=== PATIENT | male | born 1990 | race African-American/Black ===

== ENCOUNTER 2016-11-25 13:25 | Observation (INO) | payer MEDICARE, MEDICAID ==
[~2016-11-25] VITALS: Ht 160 cm; Wt 43.5 kg
== END 2016-11-25 17:09 | disposition home or self-care (01) | DRG 101 ==
LOC: ER 13:25 → OVERFLOW 14:33 → ER 17:09
PROVIDERS: ADMIT Family Medicine; ATTEND Family Medicine
DX: G40.909 Epilepsy, unspecified, not intractable, without status epilepticus (principal); S00.531A Contusion of lip, initial encounter; W01.198A Fall on same level from slipping, tripping and stumbling with subsequent striking against other object, initial encounter; Y93.89 Activity, other specified; Y92.89 Other specified places as the place of occurrence of the external cause; Y99.8 Other external cause status
CPT/HCPCS: 71010; 99285; G0378